=== PATIENT | female | born 1985 | race Asian ===

== ENCOUNTER 2016-11-29 22:41 | Emergency (ER) | payer BC ==
[2016-11-29 23:59] VITALS: BMI 37.4
--- NOTE | 2016-11-30 00:34 | PDOC ---
History of Present Illness - General Chief Complaint: Bite Stated Complaint: BEE STING Time Seen by Provider: 11/29/16 23:45 History Source: Patient Exam Limitations: No Limitations - History of Present Illness Initial Comments: 31 yo female with h/o PCOS, pre-diabetes, and IgM nephropathy who presents for allergic reaction after a bee sting. She notes having sustained a bee sting at about 10:45 pm, which was the first bee sting of her life. She started panicking after this, typical of her normal panic attacks, and within four minutes of the bee sting she developed tingling of the tongue and mouth, and itching of the chin and neck. She denies ever experiencing tongue or throat swelling, difficulty breathing, difficulty speaking, or difficulty swallowing tonight. She immediately took a Benadryl 25 mg PO and called 911. Her symptoms had mostly resolved by the time she arrived here in the ED. She now notes only minimal tongue tingling. Past History - Past Medical History Allergies/Adverse Reactions: Allergies Allergy/AdvReac Type Severity Reaction Status Date / Time No Known Allergies Allergy Verified 11/29/16 23:54 Home Medications: Ambulatory Orders Cholecalciferol (Vitamin D3) [Vitamin D] 1,000 unit PO DAILY 01/24/15 Metformin HCl 500 mg PO BID 01/24/15 Norethindrone AC-Eth Estradiol [Microgestin 21 1-20 Tablet] 1 each PO DAILY Ramipril 5 mg PO DAILY 01/24/15 Spironolactone 100 mg PO TID 01/24/15 Epinephrine [Epipen] 0.3 mg IJ ONCE PRN #1 auto.injct 11/30/16 Diabetes: Yes - Psycho/Social/Smoking Cessation Hx Suicidal Ideation: No Smoking History: Never smoked Have you smoked in the past 12 months: No Information on smoking cessation initiated: No Hx Alcohol Use: No Drug/Substance Use Hx: No Review of Systems - Review of Systems Able to Perform ROS?: Yes Constitutional: No: Chills, Fever, Unexplained wgt Loss HEENTM: Yes: Other (tongue tingling). No: Nose Congestion, Throat Pain Respiratory: No: Cough, Shortness of Breath Cardiac (ROS): No: Chest Pain, Palpitations ABD/GI: No: Constipated, Diarrhea, Nausea, Vomiting : No: Burning, Dysuria Musculoskeletal: No: Back Pain, Neck Pain Integumentary: No: Bruising, Rash Neurological: No: Headache, Numbness, Tingling, Weakness, Dizziness Endocrine: No: Unexplained Weight Gain, Unexplained Weight Loss *Physical Exam - Vital Signs Last Vital Signs Temp Pulse Resp BP Pulse Ox 98.2 F 108 H 14 59/42 98 11/29/16 23:55 11/29/16 23:55 11/29/16 23:55 11/29/16 23:55 11/29/16 23:55 - Physical Exam General Appearance: Yes: Nourished. No: Apparent Distress HEENT: positive: EOMI, Normal ENT Inspection, Normal Voice, Symmetrical, Pharynx Normal, Hearing Grossly Normal. negative: Scleral Icterus (R), Scleral Icterus (L), Muffled/Hoarse voice, Nasal Congestion, Excessive drooling Neck: positive: Trachea midline, Supple. negative: Tender, Rigid Respiratory/Chest: positive: Lungs Clear, Normal Breath Sounds. negative: Respiratory Distress, Crackles, Rhonchi, Stridor, Wheezing Cardiovascular: positive: Regular Rhythm, Regular Rate. negative: Murmur Gastrointestinal/Abdominal: positive: Normal Bowel Sounds, Soft. negative: Tender, Organomegaly, Pulsatile Mass, Guarding Musculoskeletal: positive: Normal Inspection. negative: Decreased Range of Motion, Vertebral Tenderness Extremity: positive: Normal Capillary Refill, Normal Inspection, Normal Range of Motion. negative: Tender, Cyanosis Integumentary: positive: Normal Color, Dry, Warm. negative: Erythema, Rash, Bruising Neurologic: positive: dry ice maker II-XII NML intact, Fully Oriented, Alert, Normal Mood/ Affect, Normal Response, Motor Strength 5/5 Medical Decision Making - Medical Decision Making 31 yo female p/w tongue tingling and chin/neck itching after bee sting. First bee sting of her life, reaction started within minutes, took Benadryl at home. Unremarkable exam here in the ED, no angioedema, no difficulty breathing. Initial blood pressure is low and this is thought to be in error and thus is repeated prior to DC. Most likely this is mild allergic reaction to bee sting, less likely sequela of panic attack. The patient is observed for an hour, has minimal tongue tingling at time of DC. She is given e-Rx for EpiPen in case of return of reaction or for future bee stings. She is comfortable with DC home and close outpatient F/U. *DC/Admit/Observation/Transfer Diagnosis at time of Disposition: Allergic reaction Qualifiers: Encounter type: initial encounter Qualified Code(s): T78.40XA - Allergy, unspecified, initial encounter - Discharge Dispostion Disposition: HOME Condition at time of disposition: Stable Admit: No - Prescriptions Prescriptions: Epinephrine [Epipen] 0.3 mg IJ ONCE PRN #1 auto.injct PRN Reason: Dyspnea - Referrals Referrals: Sharif Ayala [Primary Care Provider] - - Patient Instructions Printed Discharge Instructions: DI for Insect Bites and Stings, DI for General Allergic Reactions Additional Instructions: You were seen in the ED tonight for an apparent allergic reaction to a bee sting. You took Benadryl at home before the ambulance arrived, and this appears to have cleared up the reaction. We observed you for an hour and your symptoms seem to have resolved. Please brain picker the EpiPen at the [facility], and be advised that future bee stings may result in a larger reaction. Follow up with your PCP or return to the ED with any further emergency complaints. - Attestations Physician Attestion: I, Dr. Rufina Lara, attest that this document has been prepared under my direction and personally reviewed by me in its entirety. I further attest, that it accurately reflects all work, treatment, procedures and medical decision -making performed by me.
[2016-11-30 01:06] VITALS: BP 107/68; PULSE 96; TEMP 98.3
--- NOTE | 2016-11-30 01:08 | PDOC ---
Attending Attestation - Resident Resident Name: Rufina Lara - ED Attending Attestation I have performed the following: I have examined & evaluated the patient, The case was reviewed & discussed with the resident, I agree w/resident's findings & plan, Exceptions are as noted - HPI HPI: 11/30/16 01:05 31-year-old female presents to the ER with perioral paresthesias after sustaining an insect bite. Patient denies difficulty tolerating own secretions/ dysphasia/shortness of breath - Physicial Exam PE: 11/30/16 01:07 Patient is awake and alert, anxious appearing, in no respiratory distress. There is no evidence of oral or pharyngeal angioedema. Uvula is midline and is nonedematous. Lungs are clear, there is no stridor. - Medical Decision Making 11/30/16 01:08 31-year-old female presents with perioral paresthesias after sustaining a bee sting. No evidence of angioedema is present. Will observe. If asymptomatic, we' ll discharge with EpiPen with PMD follow-up.
== END 2016-11-30 01:07 | disposition home or self-care (01) ==
LOC: JER 22:41
DX: T63.441A Toxic effect of venom of bees, accidental (unintentional), initial encounter (principal); R20.2 Paresthesia of skin; Y92.89 Other specified places as the place of occurrence of the external cause; R73.03 Prediabetes; F41.0 Panic disorder [episodic paroxysmal anxiety]; E28.2 Polycystic ovarian syndrome
CPT/HCPCS: 99281-25